=== PATIENT | female | born 1980 | race Caucasian/White ===

== ENCOUNTER 2024-01-07 23:22 | Emergency (ER) | payer SELFPAY ==
[2024-01-08] MEDS ORDERED: Ondansetron PF 4 MG/2 ML Vial ONE ×2 (00:17→07:15)
== END 2024-01-08 09:07 | disposition home or self-care (01) ==
LOC: NAV ERS 23:22
DX: R11.2 Nausea with vomiting, unspecified (principal); F10.129 Alcohol abuse with intoxication, unspecified
CPT/HCPCS: 96361; 96374; 96376; J2405